=== PATIENT | female | born 1970 | race Caucasian/White ===

== ENCOUNTER 2016-12-03 19:24 | Emergency (ER) | payer MEDICAID ==
[~2016-12-03] VITALS: Ht 172.7 cm; Wt 68.0 kg
[~2016-12-03 19:24] MED LIST: BUPR100T4 PO; HYDR1TAB; IBUP100T8; VENL75TA4 PO
--- NOTE | 2016-12-03 19:47 | NUR ---
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
[2016-12-03 20:12] VITALS: BP 110/74
== END 2016-12-03 20:12 | disposition home or self-care (01) ==
LOC: ER 19:24
DX: J20.9 Acute bronchitis, unspecified (principal); M06.9 Rheumatoid arthritis, unspecified; F32.9 Major depressive disorder, single episode, unspecified; F41.9 Anxiety disorder, unspecified; Z98.82 Breast implant status
CPT/HCPCS: 84703; 99283; A4606; Z7610

== ENCOUNTER 2016-12-15 20:15 | Emergency (ER) | payer OTHER ==
[~2016-12-15] VITALS: Ht 172.7 cm; Wt 65.3 kg
--- NOTE | 2016-12-15 20:22 | NUR ---
PT C/O COUGH AND HEADACHE X 3 WEEKS. AWAITING MD ORDER
--- NOTE | 2016-12-15 20:36 | NUR ---
URINE SAMPLE COLLECTED SENT TO LAB
[2016-12-15 20:43] LABS: APPEARANCE,URINE Clear (CLEAR); BLOOD, URINE Large Ery/uL (NEGATIVE); COLOR,URINE Yellow (YELLOW); KETONES,URINE 15 (NEGATIVE); LEUKOCYTE ESTERASE ,URINE Negative (NEGATIVE); NITRITE, URINE Negative (NEGATIVE); PH,URINE 5.5 (5.0-8.0); PROTEIN,URINE Negative (NEGATIVE); UGLUCOSE Negative (NEGATIVE); UROBILINOGEN,URINE 0.2 EU/dL (0.2)
[2016-12-15 20:44] LABS: BILIRUBIN,URINE SMALL (NEGATIVE)
[2016-12-15 20:46] LABS: PREGNANCY TEST URINE QUAL NEGATIVE (NEGATIVE)
--- NOTE | 2016-12-15 20:48 | NUR ---
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
[2016-12-15 20:52] LABS: ADD URINE CULTURE NO; BACTERIA,URINE Rare /HPF (None Seen); SQUAMOUS EPITHELIAL CELL,UR Rare /HPF (None Seen); WBC,URINE NONE SEEN /HPF (0-3)
--- NOTE | 2016-12-15 21:57 | NUR ---
Patient discharged to home in stable condition. Written and verbal after care instructions given. Patient verbalizes understanding of instruction.
[2016-12-15 21:58] VITALS: BP 130/85
== END 2016-12-15 21:59 | disposition home or self-care (01) ==
LOC: ER 20:15
DX: J40 Bronchitis, not specified as acute or chronic (principal); F32.9 Major depressive disorder, single episode, unspecified; F41.9 Anxiety disorder, unspecified; Z98.82 Breast implant status; M06.9 Rheumatoid arthritis, unspecified
CPT/HCPCS: 71010; 81001; 84703; 99285; A4606; Z7610; 81000-TC

== ENCOUNTER 2016-12-29 21:24 | Emergency (ER) | payer OTHER ==
[~2016-12-29] VITALS: Ht 172.7 cm; Wt 64.4 kg
--- NOTE | 2016-12-29 21:30 | NUR ---
PT AMBULATORY TO ER BED 10 ACCOMPANIED BY FAMILY. C/O OF GENERALIZED MALAISE, FATIGUE X 7 WEEKS. PT STATES NO PMD. ALSO C/O COUGH AND CONGESTION. PLACED ON MONITOR. [employer]ER. AWAITING MD BURNHAM.
[2016-12-29] MEDS ORDERED: ACETAMINOPHEN ES 500 MG TABLET ONE (21:49)
[2016-12-29] MEDS ORDERED: IV SET PRIMARY 1 EA INFUS.SET MC ONE (21:49)
[2016-12-29] MEDS ORDERED: IV NS 0.9% 500 ML IV ONE (21:49)
--- NOTE | 2016-12-29 21:49 | NUR ---
IV LINE STARTED BLOOD DRAWN AND SENT TO LAB.
[2016-12-29] MEDS ORDERED: IV NS 0.9% 500 ML BAG IV ONE (22:00)
[2016-12-29] MEDS ORDERED: ACETAMINOPHEN ES 500 MG TABLET PO ONE (22:00)
[2016-12-29] MEDS ORDERED: ALBUTEROL FS 2.5 MG/0.5 ML VIAL.NEB NEB ONE (22:00)
[2016-12-29 22:05] LABS: BASOPHILS # (AUTO) 0.1 /CMM (0.0-0.2); BASOPHILS % (AUTO) 0.4 % (0.0-2.0); EOSINOPHILS # (AUTO) 0.3 /CMM (0.0-0.7); EOSINOPHILS % (AUTO) 2.3 % (0.0-6.0); HEMATOCRIT 39 % (33-45); HEMOGLOBIN 13.3 g/dL (11.5-14.8); LYMPHOCYTES # (AUTO) 1.9 /CMM (0.8-4.8); LYMPHOCYTES % (AUTO) 15.6 % (20.0-44.0); MEAN CORPUSCULAR HEMOGLOBIN 33 PG (26.0-33.0); MEAN CORPUSCULAR HGB CONC 34 g/dl (31.0-36.0); MEAN CORPUSCULAR VOLUME 97 fL (82-100); MONOCYTES % (AUTO) 7.9 % (2.0-12.0); NEUTROPHILS # (AUTO) 9.1 /CMM (1.8-8.9); NEUTROPHILS % (AUTO) 73.8 % (43.0-81.0); PLATELET COUNT (AUTO) 339 /CMM (150-450); RDW COEFFICIENT OF VARIATION 14.1 (11.5-15.0); RED BLOOD CELL COUNT(AUTO) 4.02 MIL/uL (4.0-5.2); WHITE BLOOD COUNT (AUTO) 12.4 K/uL (4.3-11.0)
[2016-12-29] MEDS ORDERED: ALBUTEROL FS 2.5 MG/3 ML VIAL.NEB ONE (22:05)
[2016-12-29 22:09] LABS: CALCIUM, SERUM 8.9 mg/dL (8.5-10.1); CREATININE 0.6 mg/dL (0.6-1.3); POTASSIUM 3.7 mmol/L (3.5-5.1)
--- NOTE | 2016-12-29 22:10 | NUR ---
DR DÍAZ AT BEDSIDE FOR EVAL.
[2016-12-29 22:46] LABS: APPEARANCE,URINE CLEAR (CLEAR); BILIRUBIN,URINE NEGATIVE (NEGATIVE); BLOOD, URINE 1+ Ery/uL (NEGATIVE); COLOR,URINE YELLOW (YELLOW); KETONES,URINE NEGATIVE (NEGATIVE); LEUKOCYTE ESTERASE ,URINE NEGATIVE (NEGATIVE); NITRITE, URINE NEGATIVE (NEGATIVE); PH,URINE 6.5 (5.0-8.0); PROTEIN,URINE NEGATIVE (NEGATIVE); UGLUCOSE NEGATIVE (NEGATIVE); UROBILINOGEN,URINE 0.2 EU/dL (0.2)
[2016-12-29 22:51] LABS: PREGNANCY TEST URINE QUAL NEGATIVE (NEGATIVE)
[2016-12-29 23:01] LABS: BACTERIA,URINE None seen /HPF (None Seen); MUCUS,URINE Few /LPF (None Seen); SQUAMOUS EPITHELIAL CELL,UR Few /HPF (None Seen); WBC,URINE 0-2 /HPF (0-3)
--- NOTE | 2016-12-29 23:26 | NUR ---
Patient discharged to home in stable condition. Written and verbal after care instructions given. Patient verbalizes understanding of instruction.IV removed. Catheter intact and site benign. Pressure and 4x4 applied to site. No bleeding noted.
[2016-12-29 23:27] VITALS: BP 132/77
== END 2016-12-29 23:28 | disposition home or self-care (01) ==
LOC: ER 21:24
DX: R53.83 Other fatigue (principal); R05 Cough; M06.9 Rheumatoid arthritis, unspecified; F32.9 Major depressive disorder, single episode, unspecified; F41.9 Anxiety disorder, unspecified; Z98.82 Breast implant status
CPT/HCPCS: 36415; 71010; 80048; 81001; 83880; 84443; 84703; 85025; 86140; 93005; 94640 ×2; 99285; A4606; J7040; Z7610; 81000-TC

== ENCOUNTER 2023-10-09 14:04 | Emergency (ER) | payer MEDICAID, OTHER ==
[~2023-10-09] VITALS: Ht 172.7 cm; Wt 59.0 kg
[2023-10-09] MEDS: IV NS 0.9% 1,000 ML BAG IV ONE (15:17)
[2023-10-09] MEDS ORDERED: KETOROLAC TROMETHAMINE INJ 30 MG/ML VIAL ONE (15:18)
[2023-10-09] MEDS ORDERED: ONDANSETRON HCL/PF 4 MG/2 ML VIAL ONE (15:18)
[2023-10-09] MEDS: ONDANSETRON HCL/PF 4 MG/2 ML VIAL IVP ONE (15:19)
[2023-10-09] MEDS: KETOROLAC TROMETHAMINE 15 MG/ML VIAL IV ONE (15:19)
[2023-10-09 15:24] LABS: BASOPHILS # (AUTO) 0.1 K/uL (0.0-0.2); BASOPHILS % (AUTO) 0.9 % (0.0-2.0); EOSINOPHILS # (AUTO) 0.1 K/uL (0.0-0.7); EOSINOPHILS % (AUTO) 1.9 % (0.0-6.0); HEMATOCRIT 42 % (33-45); HEMOGLOBIN 14.1 g/dL (11.5-14.8); LYMPHOCYTES # (AUTO) 0.8 K/uL (0.8-4.8); LYMPHOCYTES % (AUTO) 11.4 % (20.0-44.0); MEAN CORPUSCULAR HEMOGLOBIN 37 PG (26.0-33.0); MEAN CORPUSCULAR HGB CONC 34 g/dl (31.0-36.0); MEAN CORPUSCULAR VOLUME 110 fL (82-100); MONOCYTES # (AUTO) 0.6 K/uL (0.1-1.30); MONOCYTES % (AUTO) 9.3 % (2.0-12.0); NEUTROPHILS # (AUTO) 5.2 K/uL (1.8-8.9); NEUTROPHILS % (AUTO) 76.5 % (43.0-81.0); PLATELET COUNT (AUTO) 278 K/uL (150-450); RED BLOOD CELL COUNT(AUTO) 3.79 MIL/uL (4.0-5.2); RED CELL DISTRIBUTION WIDTH 14.3 % (11.5-15.0); WHITE BLOOD COUNT (AUTO) 6.8 K/uL (4.3-11.0)
[2023-10-09 15:37] LABS: CALCIUM, SERUM 9.5 mg/dL (8.5-10.1); CREATININE 0.6 mg/dL (0.6-1.3); POTASSIUM 3.8 mmol/L (3.5-5.1)
[2023-10-09 15:43] LABS: ALBUMIN 4.1 g/dL (3.4-5.0); BILIRUBIN,TOTAL 0.4 mg/dL (0.2-1.0)
[2023-10-09] MEDS ORDERED: BENZ-13 PO (15:45)
[2023-10-09] MEDS ORDERED: AZIT250T PO (15:45)
[2023-10-09 15:53] VITALS: BP 115/80; TEMP 97.9; O2SAT 98
[2023-10-09 16:26] LABS: BILIRUBIN,DIRECT 0.1 mg/dL (0.0-0.2)
[2023-10-09 16:36] LABS: EOSINOPHILS % (MANUAL) 1 % (0-4); LYMPHOCYTES % (MANUAL) 17 % (16-48); MONOCYTES % (MANUAL) 11 % (0-11.0); NEUTROPHILS % (MANUAL) 71 (42-76); PLATELET ESTIMATE ADEQUATE
[2023-10-09 16:37] LABS: ANISOCYTOSIS 1+
== END 2023-10-09 15:54 | disposition home or self-care (01) ==
LOC: ER 14:11
DX: J42 Unspecified chronic bronchitis (principal); M06.9 Rheumatoid arthritis, unspecified; F41.9 Anxiety disorder, unspecified; F32.A Depression, unspecified; Z20.822 Contact with and (suspected) exposure to COVID-19
CPT/HCPCS: 99285; 74176; 96374; 71045; 96361; 96375; 87426; 87804 ×2; 85025; 80048; 80076; 36415; 85007; J1885; J2405; J7030

== ENCOUNTER 2024-12-21 18:15 | Emergency (ER) | payer MEDICAID ==
[~2024-12-21] VITALS: Ht 172.7 cm; Wt 63.5 kg
[~2024-12-21 18:15] MED LIST changes: +AZIT250T PO; +BENZ-13 PO
[2024-12-21 18:27] VITALS: BP 126/83; TEMP 98.2
[2024-12-21] MEDS ORDERED: AMOX-430 PO (18:47)
[2024-12-21] MEDS ORDERED: IBUP-1490 PO (18:47)
[2024-12-21] MEDS ORDERED: CETI10CA8 PO (18:47)
[2024-12-21 18:58] VITALS: O2SAT 98
== END 2024-12-21 18:59 | disposition home or self-care (01) ==
LOC: ER 18:27
DX: T63.311A Toxic effect of venom of black widow spider, accidental (unintentional), initial encounter (principal); F32.A Depression, unspecified; F41.9 Anxiety disorder, unspecified; M06.9 Rheumatoid arthritis, unspecified; Z79.899 Other long term (current) drug therapy; Y92.89 Other specified places as the place of occurrence of the external cause

== ENCOUNTER 2025-01-02 15:12 | Emergency (ER) | payer MEDICAID ==
[~2025-01-02] VITALS: Ht 172.7 cm; Wt 63.5 kg
[~2025-01-02 15:12] MED LIST changes: +AMOX-430 PO; +CETI10CA8 PO; +IBUP-1490 PO
[2025-01-02 15:37] VITALS: BP 124/60; TEMP 98.1
[2025-01-02] MEDS ORDERED: CLIN300C12 PO (15:48)
[2025-01-02] MEDS ORDERED: CLINDAMYCIN HCL 150 MG CAPSULE ONE (15:49)
[2025-01-02] MEDS: CLINDAMYCIN HCL 150 MG CAPSULE PO ONE (15:52)
[2025-01-02 16:03] VITALS: O2SAT 99
== END 2025-01-02 16:04 | disposition home or self-care (01) ==
LOC: ER 15:14
DX: L03.011 Cellulitis of right finger (principal); M79.644 Pain in right finger(s); F32.A Depression, unspecified; F41.9 Anxiety disorder, unspecified; M06.9 Rheumatoid arthritis, unspecified; Z79.899 Other long term (current) drug therapy

== ENCOUNTER 2025-02-10 21:24 | Emergency (ER) | payer MEDICAID ==
[~2025-02-10] VITALS: Ht 175.3 cm; Wt 63.5 kg
[~2025-02-10 21:24] MED LIST changes: +CLIN300C12 PO
[2025-02-10] MEDS ORDERED: ONDANSETRON HCL/PF 4 MG/2 ML VIAL ONE (22:18)
[2025-02-10] MEDS: IV NS 0.9% 1,000 ML BAG IV ONE (22:42)
[2025-02-10] MEDS: ONDANSETRON HCL/PF 4 MG/2 ML VIAL IVP ONE (22:42)
[2025-02-10] MEDS ORDERED: ACETAMINOPHEN ES 500 MG TABLET ONE (22:43)
[2025-02-10 22:44] LABS: APPEARANCE,URINE SLIGHTLY CLOUDY (CLEAR); BLOOD, URINE TRACE-INTA Ery/uL (NEGATIVE); LEUKOCYTE ESTERASE ,URINE NEGATIVE (NEGATIVE); NITRITE, URINE NEGATIVE (NEGATIVE); UGLUCOSE NEGATIVE (NEGATIVE)
[2025-02-10 22:46] LABS: PREGNANCY TEST URINE QUAL NEGATIVE (NEGATIVE)
[2025-02-10] MEDS: ACETAMINOPHEN 325 MG TABLET PO ONE (22:46)
[2025-02-10 22:48] LABS: PLATELET COUNT (AUTO) 213 K/uL (150-450); RED BLOOD CELL COUNT(AUTO) 3.65 MIL/uL (4.0-5.2); RED CELL DISTRIBUTION WIDTH 14.6 % (11.5-15.0); WHITE BLOOD COUNT (AUTO) 6.2 K/uL (4.3-11.0)
[2025-02-10 22:48] LABS: ADD URINE CULTURE NO; AMPHETAMINE, URINE NEGATIVE (NEGATIVE); BARBITURATE, URINE NEGATIVE (NEGATIVE); BENZODIAZEPINE, URINE NEGATIVE (NEGATIVE); COCCAINE, URINE NEGATIVE (NEGATIVE); OPIATE, URINE NEGATIVE (NEGATIVE); URINE AMORPHOUS PHOSPHATES Few /HPF (None Seen)
[2025-02-10 22:58] LABS: CANNABINOID, URINE POSITIVE (NEGATIVE)
[2025-02-10 23:01] LABS: CALCIUM, SERUM 8.9 mg/dL (8.5-10.1); CREATININE 0.7 mg/dL (0.6-1.3); INR 1.08 (0.91-1.10); SODIUM SERUM 136 mmol/L (136-145); UREA NITROGEN, BLOOD 14 mg/dL (7-18)
[2025-02-10 23:08] LABS: ASPARTATE AMINOTRANSFERASE 25 U/L (15-37); TOTAL PROTEIN, SERUM 7.8 g/dL (6.4-8.2)
[2025-02-10 23:30] LABS: EOSINOPHILS % (MANUAL) 1 % (0-4); LYMPHOCYTES % (MANUAL) 2 % (16-48); MONOCYTES % (MANUAL) 5 % (0-11.0); NEUTROPHILS % (MANUAL) 92 (42-76)
[2025-02-10 23:34] LABS: PLATELET ESTIMATE ADEQUATE
[2025-02-11 00:01] VITALS: BP 100/63; TEMP 98.5; O2SAT 97
== END 2025-02-11 00:01 | disposition home or self-care (01) ==
LOC: ER 21:26
DX: B34.9 Viral infection, unspecified (principal); R53.1 Weakness; R50.9 Fever, unspecified; M06.9 Rheumatoid arthritis, unspecified; F41.9 Anxiety disorder, unspecified; R51.9 Headache, unspecified; F32.A Depression, unspecified; Z79.899 Other long term (current) drug therapy; Z20.822 Contact with and (suspected) exposure to COVID-19; Z86.2 Personal history of diseases of the blood and blood-forming organs and certain disorders involving the immune mechanism
CPT/HCPCS: 99285; 96374; 96361; 93005; 87804 ×2; 71045; 70450; 85027; 80048; 80076; 84703; 85007; 81001; 36415; 84484; 85730; 82962; 87426; 80320; 80307; J2405; J7030; G0480